=== PATIENT | female | born 1990 | race Caucasian/White ===

== ENCOUNTER 2024-04-30 13:33 | Emergency (ER) | payer MEDICAID, OTHER ==
[~2024-04-30] VITALS: Ht 162.6 cm; Wt 63.6 kg
[~2024-04-30 13:33] MED LIST: CHLO5CAP4 PO; HYDR-3831 PO
[2024-04-30 13:37] VITALS: TEMP 98
[2024-04-30 15:58] LABS: BASOPHILS % (AUTO) 1.1 % (0.0-2.0); HEMATOCRIT 35.2 % (36-46); HEMOGLOBIN 11.3 g/dL (12.0-16.0); LYMPHOCYTES # (AUTO) 1.8 K/uL (1.0-4.8); LYMPHOCYTES % (AUTO) 28.6 % (22.0-44.0); MEAN CORPUSCULAR HEMOGLOBIN 21.2 pg (26.0-34.0); MEAN CORPUSCULAR VOLUME 66 fL (80-100); MONOCYTES # (AUTO) 0.2 K/uL (0.1-1.0); MONOCYTES % (AUTO) 3.7 % (2.0-9.0); NEUTROPHILS # (AUTO) 4.1 K/uL (1.8-7.7); NEUTROPHILS % (AUTO) 65.6 % (40.0-70.0); PLATELET COUNT (AUTO) 415 K/uL (150-450); RED BLOOD CELL COUNT(AUTO) 5.31 MIL/uL (4.00-5.20); RED CELL DISTRIBUTION WIDTH 16.9 % (11.5-14.5); WHITE BLOOD COUNT (AUTO) 6.2 K/uL (4.5-11.0)
[2024-04-30 16:09] LABS: ANION GAP 10 mmol/L (8-16); CALCIUM, TOTAL 7.9 mg/dL (8.8-10.5); CARBON DIOXIDE 27 mmol/L (22-29); CHLORIDE 104 mmol/L (98-107); CREATININE 0.77 mg/dL (0.60-1.30); GLOMERULAR FILTR. RATE CALC > 60 mL/min (>60); GLUCOSE,RANDOM 91 mg/dL (70-110); POTASSIUM 3.5 mmol/L (3.5-5.1); SODIUM SERUM 141 mmol/L (136-145); UREA NITROGEN, BLOOD 10 mg/dL (7-18)
[2024-04-30 16:13] LABS: ALCOHOL, BLOOD (SERUM) 309 mg/dL (0-10)
[2024-04-30 16:38] LABS: PLATELET MORPHOLOGY COMMENT LARGE PLTS PRESENT; RBC MORPHOLOGY COMMENT ABNORMAL RBC MORPH
[2024-04-30] MEDS ORDERED: GABA-1181 PO (17:05)
[2024-04-30 17:08] VITALS: BP 120/81; PULSE 73; RESP 18; O2SAT 98
[2024-04-30] MEDS: GABAPENTIN 300 MG CAPSULE PO ONE (17:10)
== END 2024-04-30 17:54 | disposition home or self-care (01) ==
LOC: EMS 13:33
DX: F10.129 Alcohol abuse with intoxication, unspecified (principal); Y90.8 Blood alcohol level of 240 mg/100 ml or more
CPT/HCPCS: 99283; 80048; 85025; 36415; G0480

== ENCOUNTER 2024-05-16 10:34 | Emergency (ER) | payer OTHER ==
[~2024-05-16] VITALS: Ht 160 cm; Wt 72.7 kg
[~2024-05-16 10:34] MED LIST changes: -CHLO5CAP4 PO; +GABA-1181 PO; -HYDR-3831 PO
[2024-05-16 10:42] VITALS: TEMP 98
[2024-05-16 11:23] LABS: BASOPHILS % (AUTO) 1.1 % (0.0-2.0); EOSINOPHILS % (AUTO) 3.1 % (1.0-6.0); HEMATOCRIT 37.8 % (36-46); LYMPHOCYTES # (AUTO) 1.8 K/uL (1.0-4.8); MEAN CORPUSCULAR HEMOGLOBIN 21.9 pg (26.0-34.0); MEAN CORPUSCULAR HGB CONC 31.9 G/dL (31.0-37.0); MEAN CORPUSCULAR VOLUME 69 fL (80-100); MONOCYTES # (AUTO) 0.4 K/uL (0.1-1.0); MONOCYTES % (AUTO) 6.8 % (2.0-9.0); NEUTROPHILS # (AUTO) 3.1 K/uL (1.8-7.7); PLATELET COUNT (AUTO) 348 K/uL (150-450); RED BLOOD CELL COUNT(AUTO) 5.49 MIL/uL (4.00-5.20); WHITE BLOOD COUNT (AUTO) 5.6 K/uL (4.5-11.0)
[2024-05-16 11:24] LABS: RBC MORPHOLOGY COMMENT ABNORMAL RBC MORPH
[2024-05-16 11:34] LABS: ANION GAP 9 mmol/L (8-16); CALCIUM, TOTAL 8.3 mg/dL (8.8-10.5); CARBON DIOXIDE 28 mmol/L (22-29); CHLORIDE 104 mmol/L (98-107); CREATININE 0.67 mg/dL (0.60-1.30); GLOMERULAR FILTR. RATE CALC > 60 mL/min (>60); GLUCOSE,RANDOM 88 mg/dL (70-110); POTASSIUM 3.2 mmol/L (3.5-5.1); SODIUM SERUM 141 mmol/L (136-145); UREA NITROGEN, BLOOD 12 mg/dL (7-18)
[2024-05-16 12:07] LABS: APPEARANCE,URINE CLEAR (CLEAR); BILIRUBIN,URINE NEGATIVE (NEGATIVE); COLOR,URINE LIGHT YELLOW (YELLOW); GLUCOSE, URINE (UA) NEGATIVE (NEGATIVE); KETONES,URINE NEGATIVE (NEGATIVE); LEUKOCYTE ESTERASE ,URINE TRACE (NEGATIVE); NITRATE,URINE NEGATIVE (NEGATIVE); OCCULT BLOOD,URINE MODERATE (NEGATIVE); PROTEIN,URINE 30-70 mg/dL (NEGATIVE); UROBILINOGEN,URINE <=1.0 mg/dL (<=1.0)
[2024-05-16 12:32] LABS: AMPHET/METH SCREEN,URINE NEGATIVE (NEGATIVE); BARBITURATE SCREEN, URINE NEGATIVE (NEGATIVE); BENZODIAZEPINES SCREEN,URINE NEGATIVE (NEGATIVE); CANNABINOID SCREEN,URINE NEGATIVE (NEGATIVE); COCAINE SCREEN,URINE NEGATIVE (NEGATIVE); METHADONE SCREEN, URINE NEGATIVE (NEGATIVE); OPIATE SCREEN,URINE NEGATIVE (NEGATIVE); PHENCYCLIDINE SCREEN,URINE NEGATIVE (NEGATIVE)
[2024-05-16 12:33] LABS: ALCOHOL, BLOOD (SERUM) 307 mg/dL (0-10)
[2024-05-16 12:34] LABS: ALCOHOL, URINE DRUG SCREEN POSITIVE (NEGATIVE)
[2024-05-16 12:53] LABS: RBC,URINE 0-2 /HPF (0-2)
[2024-05-16 12:54] VITALS: BP 154/92; PULSE 86; RESP 18; O2SAT 99
[2024-05-16 12:54] LABS: BACTERIA,URINE None Seen /HPF (None Seen); SQUAMOUS EPITHELIAL CELL,UR Few /LPF (None Seen); WBC,URINE None Seen /HPF (0-5)
[2024-05-16] MEDS: POTASSIUM CHLORIDE 20 MEQ ER TABLET PO ONE (13:29)
[2024-05-16] MEDS ORDERED: CHLO25CA6 PO (14:56)
== END 2024-05-16 15:23 | disposition home or self-care (01) ==
LOC: EMS 10:35
DX: F10.229 Alcohol dependence with intoxication, unspecified (principal); E87.6 Hypokalemia; Z79.899 Other long term (current) drug therapy; Y90.8 Blood alcohol level of 240 mg/100 ml or more
CPT/HCPCS: 99283; 80048; 81001; 83735; 85025; 36415; 80307; G0480

== ENCOUNTER 2024-06-04 10:38 | Inpatient (IN) | payer OTHER ==
[~2024-06-04] VITALS: Ht 160 cm; Wt 73.5 kg
[~2024-06-04 10:38] MED LIST changes: +CHLO25CA6 PO
[2024-06-04 11:38] LABS: BASOPHILS % (AUTO) 1.1 % (0.0-2.0); EOSINOPHILS % (AUTO) 2.4 % (1.0-6.0); HEMATOCRIT 37.1 % (36-46); HEMOGLOBIN 11.7 g/dL (12.0-16.0); LYMPHOCYTES # (AUTO) 2.2 K/uL (1.0-4.8); LYMPHOCYTES % (AUTO) 35.8 % (22.0-44.0); MEAN CORPUSCULAR HEMOGLOBIN 21.4 pg (26.0-34.0); MEAN CORPUSCULAR HGB CONC 31.4 G/dL (31.0-37.0); MEAN CORPUSCULAR VOLUME 68 fL (80-100); MONOCYTES # (AUTO) 0.3 K/uL (0.1-1.0); MONOCYTES % (AUTO) 4.4 % (2.0-9.0); NEUTROPHILS # (AUTO) 3.4 K/uL (1.8-7.7); NEUTROPHILS % (AUTO) 56.3 % (40.0-70.0); PLATELET COUNT (AUTO) 370 K/uL (150-450); RED BLOOD CELL COUNT(AUTO) 5.44 MIL/uL (4.00-5.20); RED CELL DISTRIBUTION WIDTH 14.6 % (11.5-14.5)
[2024-06-04 11:47] LABS: ALCOHOL, BLOOD (SERUM) 286 mg/dL (0-10); ANION GAP 11 mmol/L (8-16); CALCIUM, TOTAL 8.1 mg/dL (8.8-10.5); CARBON DIOXIDE 27 mmol/L (22-29); CHLORIDE 106 mmol/L (98-107); CREATININE 0.72 mg/dL (0.60-1.30); GLOMERULAR FILTR. RATE CALC > 60 mL/min (>60); GLUCOSE,RANDOM 86 mg/dL (70-110); POTASSIUM 3.2 mmol/L (3.5-5.1); SODIUM SERUM 144 mmol/L (136-145); UREA NITROGEN, BLOOD 9 mg/dL (7-18)
[2024-06-04 12:00] LABS: ALANINE AMINOTRANSFERASE 30 U/L (12-78); ALBUMIN 3.6 g/dL (3.4-5.0); ALKALINE PHOSPHATASE 69 U/L (46-116); ASPARTATE AMINOTRANSFERASE 70 U/L (15-37); BILIRUBIN,TOTAL 0.5 mg/dL (0.1-1.0); TOTAL PROTEIN, SERUM 7.4 g/dL (6.4-8.2)
[2024-06-04] MEDS: POTASSIUM CHLORIDE 20 MEQ ER TABLET PO ONE (13:22)
[2024-06-04] MEDS: LORazepam 2 MG/ML VIAL IVP ONE (14:49)
[2024-06-04] MEDS ORDERED: ChlordiazePOXIDE HCL 25 MG CAPSULE PO PRN (18:30)
[2024-06-04] MEDS: 1: MAGNESIUM SULFATE 2 GM, MVI, ADULT NO.1 WITH VIT K 10 ML, THIAMINE 100 MG, FOLIC ACID IV SCH (18:52)
[2024-06-04] MEDS: LORazepam 2 MG/ML VIAL IVP PRN (18:54)
[2024-06-04] MEDS: ChlordiazePOXIDE HCL 25 MG CAPSULE PO SCH (20:27)
[2024-06-04 22:48] LABS: APPEARANCE,URINE CLEAR (CLEAR); BILIRUBIN,URINE NEGATIVE (NEGATIVE); COLOR,URINE LIGHT YELLOW (YELLOW); GLUCOSE, URINE (UA) NEGATIVE (NEGATIVE); KETONES,URINE NEGATIVE (NEGATIVE); LEUKOCYTE ESTERASE ,URINE NEGATIVE (NEGATIVE); OCCULT BLOOD,URINE LARGE (NEGATIVE); PROTEIN,URINE TRACE mg/dL (NEGATIVE); SPECIFIC GRAVITIY, URINE 1.013 (1.003-1.030); UROBILINOGEN,URINE <=1.0 mg/dL (<=1.0)
[2024-06-04 23:02] LABS: NITRATE,URINE NEGATIVE (NEGATIVE)
[2024-06-04 23:47] LABS: BACTERIA,URINE Few /HPF (None Seen); SQUAMOUS EPITHELIAL CELL,UR Few /LPF (None Seen); WBC,URINE 0-2 /HPF (0-5)
[2024-06-05 00:10] VITALS: BP 114/71; PULSE 72; RESP 18; TEMP 98.7; O2SAT 98
[2024-06-05 01:06] VITALS: BP 122/89; PULSE 67; RESP 18; TEMP 98.2; O2SAT 94
[2024-06-05 05:10] VITALS: BP 131/90; PULSE 72; RESP 18; TEMP 97.9; O2SAT 96
[2024-06-05] MEDS ORDERED: ChlordiazePOXIDE HCL 25 MG CAPSULE PO PRN (07:00)
[2024-06-05] MEDS: ChlordiazePOXIDE HCL 25 MG CAPSULE PO SCH (08:50)
[2024-06-05 08:53] VITALS: BP 124/88; PULSE 59; RESP 18; TEMP 97.9; O2SAT 100
[2024-06-05 13:00] VITALS: BP 123/80; PULSE 83; RESP 18; TEMP 98.1; O2SAT 100
[2024-06-05] MEDS ORDERED: PANTOPRAZOLE SODIUM 80 MG in SODIUM CHLORIDE 0.9% 100 ML IV SCH (15:45)
[2024-06-05] MEDS ORDERED: OCTREOTIDE ACETATE 500 MCG in SODIUM CHLORIDE 0.9% 97.5 ML IV SCH (15:45)
[2024-06-05 20:06] VITALS: BP 130/83; PULSE 79; RESP 20; TEMP 98.6; O2SAT 98
[2024-06-06 02:09] VITALS: BP 130/83; PULSE 79; RESP 20; TEMP 98.6; O2SAT 98
[2024-06-06 07:44] LABS: BASOPHILS % (AUTO) 0.8 % (0.0-2.0); HEMATOCRIT 33.1 % (36-46); HEMOGLOBIN 10.5 g/dL (12.0-16.0); LYMPHOCYTES # (AUTO) 1.7 K/uL (1.0-4.8); LYMPHOCYTES % (AUTO) 32.2 % (22.0-44.0); MEAN CORPUSCULAR HEMOGLOBIN 22.1 pg (26.0-34.0); MEAN CORPUSCULAR HGB CONC 31.8 G/dL (31.0-37.0); MEAN CORPUSCULAR VOLUME 69 fL (80-100); MONOCYTES # (AUTO) 0.4 K/uL (0.1-1.0); MONOCYTES % (AUTO) 7.4 % (2.0-9.0); NEUTROPHILS # (AUTO) 2.8 K/uL (1.8-7.7); NEUTROPHILS % (AUTO) 51.6 % (40.0-70.0); PLATELET COUNT (AUTO) 314 K/uL (150-450); RED BLOOD CELL COUNT(AUTO) 4.77 MIL/uL (4.00-5.20); RED CELL DISTRIBUTION WIDTH 14.7 % (11.5-14.5); WHITE BLOOD COUNT (AUTO) 5.4 K/uL (4.5-11.0)
[2024-06-06 07:52] LABS: ANION GAP 5 mmol/L (8-16); CARBON DIOXIDE 26 mmol/L (22-29); CHLORIDE 107 mmol/L (98-107); CREATININE 0.54 mg/dL (0.60-1.30); GLOMERULAR FILTR. RATE CALC > 60 mL/min (>60); GLUCOSE,RANDOM 110 mg/dL (70-110); POTASSIUM 3.7 mmol/L (3.5-5.1); SODIUM SERUM 138 mmol/L (136-145); UREA NITROGEN, BLOOD 9 mg/dL (7-18)
[2024-06-06 09:02] LABS: RBC MORPHOLOGY COMMENT ABNORMAL RBC MORPH
[2024-06-06 16:08] VITALS: BP 115/85; PULSE 69; RESP 18; TEMP 98.5; O2SAT 97
[2024-06-06 18:49] VITALS: BP 131/90; PULSE 70; RESP 18; TEMP 97.5; O2SAT 100
[2024-06-06 19:46] VITALS: BP 128/86; PULSE 81; RESP 18; TEMP 98.4; O2SAT 100
[2024-06-07 05:09] VITALS: BP 119/80; PULSE 80; RESP 18; TEMP 98.2; O2SAT 100
[2024-06-07] MEDS ORDERED: ChlordiazePOXIDE HCL 10 MG CAPSULE PO PRN (07:00)
[2024-06-07] MEDS: ChlordiazePOXIDE HCL 10 MG CAPSULE PO SCH (07:58)
[2024-06-07 08:07] VITALS: BP 122/74; PULSE 85; RESP 18; TEMP 98; O2SAT 100
[2024-06-07 16:41] VITALS: BP 118/72; PULSE 88; RESP 18; TEMP 98.2; O2SAT 99
[2024-06-07 19:50] VITALS: BP 117/71; PULSE 73; RESP 18; TEMP 98.2; O2SAT 96
[2024-06-07 21:00] VITALS: BP 117/71; PULSE 73; RESP 18; TEMP 98.2; O2SAT 95
[2024-06-08 06:03] VITALS: BP 114/78; PULSE 69; RESP 18; TEMP 98.4; O2SAT 98
[2024-06-08] MEDS ORDERED: ChlordiazePOXIDE HCL 10 MG CAPSULE PO PRN (07:00)
[2024-06-08 08:06] VITALS: BP 97/58; PULSE 62; RESP 18; TEMP 98.1; O2SAT 100
[2024-06-08] MEDS ORDERED: MULT-1192 PO (15:30)
[2024-06-08] MEDS ORDERED: FOLI-130 PO (15:30)
[2024-06-08] MEDS ORDERED: THIA100T80 PO (15:30)
[2024-06-08] MEDS ORDERED: PANT-31 PO (15:30)
[2024-06-08 19:45] VITALS: BP 130/74; PULSE 88; RESP 18; TEMP 98; O2SAT 100
[2024-06-09 05:13] VITALS: BP 111/69; PULSE 66; RESP 18; TEMP 97.4; O2SAT 97
[2024-06-09 08:30] VITALS: BP 122/76; PULSE 66; RESP 18; TEMP 98.3; O2SAT 96
== END 2024-06-09 08:47 | disposition home or self-care (01) | DRG 775 ==
LOC: EMS 10:51 → EDH 22:04 → 6S 06-05 00:05 → 4E 06-06 18:26
PROVIDERS: ADMIT Hospitalist; ATTEND Hospitalist
DX: F10.239 Alcohol dependence with withdrawal, unspecified (principal); E87.6 Hypokalemia; F41.9 Anxiety disorder, unspecified; Y90.8 Blood alcohol level of 240 mg/100 ml or more
CPT/HCPCS: 80048; 80053; 81001; 83735; 84703; 85025; 93005; 99285; G0378; G0480; J2060; J2354; J2470; J3411; J3475; J3490; J7030; J7050

== ENCOUNTER 2024-12-10 16:57 | Inpatient (IN) | payer OTHER ==
[~2024-12-10] VITALS: Ht 162.6 cm; Wt 67.9 kg
[~2024-12-10 16:57] MED LIST changes: -CHLO25CA6 PO; +FOLI-130 PO; -GABA-1181 PO; +MULT-1192 PO; +PANT-31 PO; +THIA100T80 PO
[2024-12-10 17:55] LABS: PLATELET COUNT (AUTO) 336 K/uL (150-450); RED BLOOD CELL COUNT(AUTO) 4.92 MIL/uL (4.00-5.20); RED CELL DISTRIBUTION WIDTH 18.1 % (11.5-14.5); WHITE BLOOD COUNT (AUTO) 5.8 K/uL (4.5-11.0)
[2024-12-10 18:04] LABS: CALCIUM, TOTAL 9.1 mg/dL (8.8-10.5); CREATININE 0.46 mg/dL (0.60-1.30); GLOMERULAR FILTR. RATE CALC > 60 mL/min (>60); GLUCOSE,RANDOM 105 mg/dL (70-110); SODIUM SERUM 142 mmol/L (136-145); UREA NITROGEN, BLOOD 5 mg/dL (7-18)
[2024-12-10 18:06] LABS: ASPARTATE AMINOTRANSFERASE 124.0 U/L (15-37); CREATINE KINASE, TOTAL ONLY 379.0 U/L (26-192); TOTAL PROTEIN, SERUM 7.4 g/dL (6.4-8.2)
[2024-12-10 18:07] LABS: ALCOHOL, BLOOD (SERUM) 202.0 mg/dL (0-10)
[2024-12-10 18:12] LABS: TROPONIN I-HIGH SENSITIVITY 6 ng/L (<51)
[2024-12-10] MEDS: ONDANSETRON HCL 4 MG/2 ML VIAL IVP ONE (18:20)
[2024-12-10] MEDS: SODIUM CHLORIDE 0.9% 1,000 ML IV ONE (18:21)
[2024-12-10] MEDS: LORazepam 2 MG/ML VIAL IVP ONE (18:21)
[2024-12-10] MEDS: FAMOTIDINE 20 MG/2 ML VIAL IVP ONE (18:21)
[2024-12-10 18:36] LABS: RBC MORPHOLOGY COMMENT ABNORMAL RBC MORPH
[2024-12-10] MEDS: POTASSIUM CHLORIDE 20 MEQ ER TABLET PO ONE (19:02)
[2024-12-10 20:33] LABS: APPEARANCE,URINE CLEAR (CLEAR); GLUCOSE, URINE (UA) NEGATIVE (NEGATIVE); LEUKOCYTE ESTERASE ,URINE NEGATIVE (NEGATIVE); NITRATE,URINE NEGATIVE (NEGATIVE); OCCULT BLOOD,URINE TRACE (NEGATIVE); PH,URINE DRUG SCREEN 7.5 (5.0-8.0); SPECIFIC GRAVITIY, URINE 1.012 (1.003-1.030)
[2024-12-10 20:41] LABS: ALCOHOL, URINE DRUG SCREEN POSITIVE (NEGATIVE); AMPHET/METH SCREEN,URINE NEGATIVE (NEGATIVE); BARBITURATE SCREEN, URINE NEGATIVE (NEGATIVE); CANNABINOID SCREEN,URINE NEGATIVE (NEGATIVE); COCAINE SCREEN,URINE NEGATIVE (NEGATIVE); METHADONE SCREEN, URINE NEGATIVE (NEGATIVE)
[2024-12-10 20:44] LABS: SQUAMOUS EPITHELIAL CELL,UR Few /LPF (None Seen)
[2024-12-10] MEDS: MAGNESIUM SULFATE 1 GM in DEXTROSE 5%-WATER 50 ML IV ONE (20:50)
[2024-12-10] MEDS: BACITRACIN 0.9 GM PACKET OINTMENT TP ONE (20:50)
[2024-12-10] MEDS ORDERED: BISACODYL 10 MG RECTAL RECTAL SUPPOSITORY PR PRN (21:45)
[2024-12-10] MEDS ORDERED: MORPHINE SULFATE 2 MG/ML SYRINGE IVP PRN (21:45)
[2024-12-10] MEDS ORDERED: MAGNESIUM HYDROXIDE SUSPENSION 30 ML UDCUP PO PRN (21:45)
[2024-12-10 22:30] VITALS: BP 133/94; PULSE 92; RESP 18; TEMP 98.8; O2SAT 96
[2024-12-10 22:33] VITALS: BP 133/94; PULSE 92; RESP 18; TEMP 98.8; O2SAT 96
[2024-12-10 22:34] VITALS: BP 135/82; PULSE 98; RESP 18; TEMP 98.8; O2SAT 96
[2024-12-10] MEDS: HYDROCODONE/ACETAMINOPHEN 5-325 MG TABLET PO PRN (22:34)
[2024-12-10 23:30] VITALS: BP 132/87; PULSE 90; RESP 18; TEMP 98.6; O2SAT 95
[2024-12-10 23:32] VITALS: BP 133/87; PULSE 94; RESP 18; TEMP 98.8; O2SAT 99
[2024-12-10 23:34] VITALS: RESP 18; O2SAT 99
[2024-12-10] MEDS: MAGNESIUM SULFATE 2 GM, MVI, ADULT NO.1 WITH VIT K 10 ML, THIAMINE 100 MG, FOLIC ACID 1... IV ONE (23:45)
[2024-12-10] MEDS: ONDANSETRON HCL 4 MG/2 ML VIAL IVP PRN (23:59)
[2024-12-11] VITALS (8 sets, daily range): BP systolic 118–137; BP diastolic 77–95; PULSE 77–107; RESP 16–19; TEMP 97.7–98.8; O2SAT 96–99
[2024-12-11] MEDS: HEPARIN SODIUM,PORCINE 5,000 UNITS/ML VIAL SQ SCH (00:37)
[2024-12-11 06:50] LABS: PLATELET COUNT (AUTO) 295 K/uL (150-450); RED BLOOD CELL COUNT(AUTO) 4.33 MIL/uL (4.00-5.20); RED CELL DISTRIBUTION WIDTH 18.0 % (11.5-14.5); WHITE BLOOD COUNT (AUTO) 7.6 K/uL (4.5-11.0)
[2024-12-11 06:59] LABS: CALCIUM, TOTAL 7.5 mg/dL (8.8-10.5); CREATININE 0.58 mg/dL (0.60-1.30); GLOMERULAR FILTR. RATE CALC > 60 mL/min (>60); GLUCOSE,RANDOM 83 mg/dL (70-110); SODIUM SERUM 139 mmol/L (136-145); UREA NITROGEN, BLOOD 5 mg/dL (7-18)
[2024-12-11 07:40] LABS: RBC MORPHOLOGY COMMENT ABNORMAL RBC MORPH
[2024-12-11] MEDS: DOCUSATE SODIUM 100 MG CAPSULE PO SCH (09:00)
[2024-12-11] MEDS: PANTOPRAZOLE SODIUM 40 MG DR TABLET PO SCH (09:00)
[2024-12-11] MEDS: SODIUM CHLORIDE 0.9% 1,000 ML IV ONE (14:01)
[2024-12-11] MEDS: FOLIC ACID 1 MG TABLET PO SCH (14:02)
[2024-12-11] MEDS: THIAMINE 100 MG TABLET PO SCH (14:02)
[2024-12-11] MEDS: MULTIVITAMINS, THERAPEUTIC TABLET PO SCH (14:04)
[2024-12-11] MEDS: CEPHALEXIN MONOHYDRATE 500 MG CAPSULE PO SCH (16:32)
[2024-12-12] MEDS: ACETAMINOPHEN 325 MG TABLET PO PRN (02:31)
[2024-12-12 03:57] VITALS: BP 131/85; PULSE 93; RESP 18; TEMP 98.1; O2SAT 100
[2024-12-12 06:29] LABS: PLATELET COUNT (AUTO) 336 K/uL (150-450); RED BLOOD CELL COUNT(AUTO) 4.76 MIL/uL (4.00-5.20); RED CELL DISTRIBUTION WIDTH 17.8 % (11.5-14.5); WHITE BLOOD COUNT (AUTO) 7.0 K/uL (4.5-11.0)
[2024-12-12 06:38] LABS: RBC MORPHOLOGY COMMENT ABNORMAL RBC MORPH
[2024-12-12 07:49] LABS: CALCIUM, TOTAL 8.8 mg/dL (8.8-10.5); CREATININE 0.51 mg/dL (0.60-1.30); GLOMERULAR FILTR. RATE CALC > 60 mL/min (>60); GLUCOSE,RANDOM 85 mg/dL (70-110); SODIUM SERUM 138 mmol/L (136-145); UREA NITROGEN, BLOOD 4 mg/dL (7-18)
[2024-12-12 08:00] VITALS: BP 130/84; PULSE 90; RESP 18; TEMP 97.9; O2SAT 95
[2024-12-12 08:24] VITALS: BP 114/79; PULSE 89; RESP 18; TEMP 98.8; O2SAT 100
[2024-12-12 12:48] VITALS: BP 128/75; PULSE 88; RESP 18; TEMP 98.2; O2SAT 97
[2024-12-12 16:44] VITALS: BP 119/94; PULSE 92; RESP 18; TEMP 98.1; O2SAT 99
[2024-12-12 19:25] VITALS: BP 115/89; PULSE 104; RESP 18; TEMP 98.4; O2SAT 100
[2024-12-13] MEDS: ZOLPIDEM TARTRATE 5 MG TABLET PO PRN (02:09)
[2024-12-13 02:16] VITALS: BP 112/92; PULSE 102; RESP 18; TEMP 97.8; O2SAT 98
[2024-12-13 07:16] LABS: PLATELET COUNT (AUTO) 353 K/uL (150-450); RED BLOOD CELL COUNT(AUTO) 5.14 MIL/uL (4.00-5.20); RED CELL DISTRIBUTION WIDTH 18.8 % (11.5-14.5); WHITE BLOOD COUNT (AUTO) 6.6 K/uL (4.5-11.0)
[2024-12-13 07:28] LABS: CALCIUM, TOTAL 10.1 mg/dL (8.8-10.5); CREATININE 0.48 mg/dL (0.60-1.30); GLOMERULAR FILTR. RATE CALC > 60 mL/min (>60); GLUCOSE,RANDOM 86 mg/dL (70-110); SODIUM SERUM 140 mmol/L (136-145); UREA NITROGEN, BLOOD 5 mg/dL (7-18)
[2024-12-13 08:45] VITALS: BP 131/90; PULSE 80; RESP 18; TEMP 96.8; O2SAT 100
[2024-12-13 15:41] VITALS: BP 122/75; PULSE 102; RESP 20; TEMP 98.1; O2SAT 100
[2024-12-13 19:41] VITALS: BP 123/83; PULSE 99; RESP 18; TEMP 98.2; O2SAT 98
[2024-12-14 04:51] VITALS: BP 135/90; PULSE 102; RESP 18; TEMP 98.1; O2SAT 99
[2024-12-14 07:30] VITALS: BP 124/89; PULSE 101; RESP 20; TEMP 97.7; O2SAT 98
[2024-12-14 08:11] LABS: CALCIUM, TOTAL 9.9 mg/dL (8.8-10.5); CREATININE 0.45 mg/dL (0.60-1.30); GLOMERULAR FILTR. RATE CALC > 60 mL/min (>60); GLUCOSE,RANDOM 83 mg/dL (70-110); SODIUM SERUM 140 mmol/L (136-145); UREA NITROGEN, BLOOD 8 mg/dL (7-18)
[2024-12-14] MEDS ORDERED: CHLO5CAP4 PO (10:55)
[2024-12-14] MEDS ORDERED: CEPH-558 PO (10:55)
== END 2024-12-14 12:40 | disposition home or self-care (01) | DRG 775 ==
LOC: EMS 16:58 → EDH 19:08 → 5S 21:44 → 6N 12-11 19:01 → 4E 12-13 05:37
PROVIDERS: ADMIT Internal Medicine; ATTEND Internal Medicine
DX: F10.939 Alcohol use, unspecified with withdrawal, unspecified (principal); K85.20 Alcohol induced acute pancreatitis without necrosis or infection; D64.9 Anemia, unspecified; E87.6 Hypokalemia; L03.039 Cellulitis of unspecified toe; F41.9 Anxiety disorder, unspecified; I71.40 Abdominal aortic aneurysm, without rupture, unspecified; Y90.9 Presence of alcohol in blood, level not specified; Z79.899 Other long term (current) drug therapy
CPT/HCPCS: 80048; 80076; 80307; 81001; 82550; 83690; 83735; 83880; 84484; 84703; 85025; 93005; 99285; G0378; G0480; J1644; J2060; J2405; J3411; J3475; J3490; J7030; J7060